=== PATIENT | male | born 1965 | race Caucasian/White ===

== ENCOUNTER → 2020-03-17 12:09 | Outpatient (CLI) | payer OTHER, SELFPAY ==
--- NOTE | ~2020-03-17 | XR_ITS ---
XR knee RT 3V DATE: 03/17/2020 12:25 INDICATION: Knee pain TECHNIQUE: [place], lateral and standing AP views COMPARISON: None FINDINGS: There is moderately large suprapatellar knee joint effusion. There is tricompartment osteoarthritis, most pronounced at the medial compartment. No fracture, dislocation, periosteal reaction or bone destruction is detected. Femoral and popliteal and trifurcation artery calcifications are noted. IMPRESSION: Moderate knee joint effusion Tricompartment osteoarthritis, most pronounced at the medial compartment Reviewed, dictated and finalized at location A.
--- NOTE | ~2020-03-17 | XR_ITS ---
XR knee LT 3V DATE: 03/17/2020 12:25 INDICATION: Knee pain TECHNIQUE: [place], lateral and standing AP views COMPARISON: None FINDINGS: There is moderate suprapatellar knee joint effusion. There is prominent tricompartment osteoarthritis, most pronounced at the medial and patellofemoral co mpartments. There is a prominent degenerative cyst in the central to medial aspect of the tibial plat eau. There is valgus deformity. No fracture or dislocation, periosteal reaction or bone destruction is suman dent. Femoral, popliteal and trifurcation artery calcifications are noted. IMPRESSION: Prominent tricompartment osteoarthritis Moderate knee joint effusion Reviewed, dictated and finalized at location A.
== END ==
PROVIDERS: PCP Family Medicine; Visit Provider Family Medicine
DX: M25.462 Effusion, left knee (principal); M25.461 Effusion, right knee; M17.0 Bilateral primary osteoarthritis of knee
CPT/HCPCS: 73562

== ENCOUNTER 2020-08-12 07:49 | Outpatient (CLI) | payer OTHER, SELFPAY ==
[2020-08-12 09:15] LABS: Basophils Percent Auto 0.5 % (0.2-1.2); Eosinophils Absolute Auto 0.1 K/mm3 (0-0.3); Eosinophils Percent Auto 1.7 % (0-4.4); Hematocrit 48.1 % (42.0-52.0); Immature Granulocyte Absolute 0.02 K/mm3 (0.00-0.031); Immature Granulocyte Percent A 0.3 % (0-0.5); Lymphocytes Absolute Auto 1.72 K/mm3 (0.9-3.2); Mean Corpuscular HGB Conc 33.3 g/dl (32-36); Mean Corpuscular Hemoglobin 30.4 pg (26-34); Mean Corpuscular Volume 91.4 fl (80-100); Mean Platelet Volume 9.5 fl (7.4-10.4); Monocytes Absolute Auto 0.7 K/mm3 (0.1-0.6); Monocytes Percent Auto 9.2 % (2.6-8.5); Neutrophils Absolute Auto 5.2 K/mm3 (1.3-6.7); Neutrophils Percent Auto 66.3 % (45.5-73.1); Platelet Count Result 218 k/mm3 (150-375); Red Blood Count 5.26 M/mm3 (4.6-6.20); Red Cell Distribution Width 13.1 % (11.5-14.5); White Blood Count 7.8 K/mm3 (4.5-10.0)
[2020-08-12 09:26] LABS: Albumin Level 4.4 g/dL (3.5-5.1)
[2020-08-12 09:29] LABS: Anion Gap 6 mmol/L (8-16); Blood Urea Nitrogen 19 mg/dL (9-20); Calcium 9.3 mg/dL (8.4-10.2); Carbon Dioxide 27 mmol/L (22-30); Chloride 105 mmol/L (98-107); Estimated Glomerular Filt Rate > 60; Glucose 96 mg/dL (75-110); Sodium 138 mmol/L (137-145)
[2020-08-12 10:42] LABS: Hemoglobin A1C 5.3 % (<5.7)
[2020-08-12 11:17] LABS: Urine Cotinine NEGATIVE
== END 2020-08-12 07:50 | disposition home or self-care (01) ==
PROVIDERS: Anesthesiology; PCP Family Medicine; Visit Provider Orthopaedic Surgery
DX: Z01.812 Encounter for preprocedural laboratory examination (principal); M17.0 Bilateral primary osteoarthritis of knee; Z51.81 Encounter for therapeutic drug level monitoring
CPT/HCPCS: 36415; 80048; 80307; 82040; 83036; 85025; 86850; 86900; 86901; 87081

== ENCOUNTER → 2020-08-21 00:08 | Outpatient (CLI) | payer OTHER, SELFPAY ==
[2020-08-21 18:59] LABS: SARS-CoV-2 RNA PCR Negative
== END ==
PROVIDERS: PCP Family Medicine; Visit Provider Orthopaedic Surgery
DX: Z01.812 Encounter for preprocedural laboratory examination (principal); Z20.822 Contact with and (suspected) exposure to COVID-19
CPT/HCPCS: C9803; U0003; U0005

== ENCOUNTER 2020-08-24 15:06 | Inpatient (IN) | payer OTHER, SELFPAY ==
[2020-08-12 08:17] VITALS: BMI 27.6
[2020-08-24] VITALS (13 sets, daily range): BP systolic 109–141; BP diastolic 61–90; PULSE 51–73; RESP 12–20; TEMP 35.9–36.9; O2SAT 98–100; BMI 31.0
--- NOTE | ~2020-08-24 | XR_ITS ---
EXAMINATION: XR knee RT 2V EXAM DATE: 08/24/2020 14:08 INDICATION: Right knee replacement. TECHNIQUE: Portable frontal, crosstable lateral projections right knee obtained immediately followin g arthroplasty. Procedure performed by Bala Velazco MD. FINDINGS: Patient is status post total knee arthroplasty. The orthopedic hardware is in expected po sition. There is small amount of subcutaneous gas, gas within the knee joint space. Overlying soft tissue swelling. Correlate with procedure note. IMPRESSION: Status post total right knee arthroplasty. Reviewed, dictated and finalized at location A.
--- NOTE | 2020-08-24 07:03 | P.PNAN_ITS ---
Anes - Initial Pre Proc Eval Procedure: Operation Date: 08/24/20 10:30 Proposed Procedures p Right Total Knee Arthroplasty - Bala Velazco MD Date/Time: 08/24/20 07:03 Surgeon: Bala Velazco MD Pre Op Diagnosis: OA bilat knee Patient Data Age: 55 Gender: M Height: 1.79 m Weight: 88.6 kg Allergies Allergy/AdvReac Type Severity Reaction Status Date / Time No Known Allergies Allergy Unknown Verified 08/24/20 08:27 Home Medications Medication Instructions Recorded Confirmed Type aspirin 81 mg tablet,delayed 81 mg PO QAM 07/15/19 08/24/20 History release metoprolol succinate 25 mg 75 mg PO DAILY #270 tablet 03/06/20 08/24/20 Rx tablet,extended release 24 hr amlodipine 5 mg QAM 08/12/20 08/24/20 History hydrochlorothiazide 12.5 mg QAM 08/12/20 08/24/20 History rosuvastatin 20 mg QAM 08/12/20 08/24/20 History Patient hx anesthesia problems: none Family hx anesthesia problems: none PMFSH Past Medical History Medical History (Updated 08/24/20 @ 07:00 by Alden Diaz DO) BMI 27.0-27.9,adult Degenerative arthritis of knee Degenerative arthritis of knee, bilateral Hyperlipidemia Hypertension Kidney disease one kidney non functional Vascular disease Surgical History Surgical History (Updated 08/24/20 @ 07:00 by Alden Diaz DO) History of heart artery stent 2017 Hx of CABG x3, 2008 S/P left knee arthroscopy S/P triple vessel bypass Family History Family History Father Diabetes mellitus Family history of cardiovascular disease Mother Diabetes mellitus Social History Social History Smoking packs per day: 1 Smoking cigarettes per day: 20.0 Years smoked: 35 Smoking pack-years: 35.00 Smoking status: Former smoker Tobacco type: cigarettes Additional smoking assessment comments: LAST CIGARETTE 06/11/20 Alcohol intake: current Alcohol use details: STATES 6-10 DRINKS/WEEK Substance use: current Substance use type: marijuana Other substance usage details: STATES COUPLE HITS EVERY OTHER DAY OR SO Last use: 08/10/20 Living arrangements: alone 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[employer] Gender identity (if verbalized by the patient): Male Spiritual care concerns: No Anes - Eval Final PreProcedure Day of Procedure 08/24/20 07:03 Patient weight: overweight Heart: regular rate and rhythm Lungs: clear to auscultation and normal air movement Airway: Mallampati scale class II Neurological: alert and oriented Last oral intake: >/= 8 hours ASA classification: III Emergent: no Anesthetic plan: proceed Anesthesia type and monitoring: regional spinal and standard monitoring Informed Consent: The patient's anesthetic plan and its attendant risks and benefits were discussed with the patient/family/POA. Questions were solicited and answers provided to the satisfaction of the patient/family/POA.
[2020-08-24] MEDS: ACETAMINOPHEN 500 MG TABLET 1000 MG PO ×2 (08:45→17:22)
[2020-08-24] MEDS: LACTATED RINGERS 1,000 ML 30 ML IV CONT ×2 (08:50→13:56)
[2020-08-24] MEDS: TRANEXAMIC ACID 1,000MG/ISO100 1,000 MG/100 ML BAG 200 MG IVPB (08:50)
--- NOTE | 2020-08-24 09:37 | WPDANESPNB ---
Anes - Peripheral Nerve Block Date/Time: 08/24/20 09:37 I have discussed with the patient/family/POA the placement of a peripheral nerve block for post-operative pain management, including associated risks, benefits, complications, and side effects. Alternative methods of post-operative analgesia were detailed. Questions were solicited and answers provided to the satisfaction of the patient/family/POA. Time-Out: A pre-procedural Time-Out was completed immediately before starting the procedure and confirmed: Patient Identification, Site, Procedure, Patient Position and the Availability of Requisite Equipment. Clinical Indications: Acute post-operative pain management requested by the operative surgeon. Nerve Block Insertion Note Anes-nerve block: adductor canal right Patient position: supine Skin prep: chlorhexidine Needle: 22 gauge, stimulating, insulated echogenic needle. Needle length: 80 mm Technique: ultrasound Injectate: bupivacaine 0.5% with epi 5 mcg/ml (30cc - no epi) Observations: tolerated well Complications: none Procedure start time:: 1101 Procedure end time:: 1103
--- NOTE | 2020-08-24 11:01 | WPDHPUPDATE1 ---
History and Physical Update Update Date/Time: 08/24/20 11:01 History and Physical has been reviewed, including an updated exam of the patient. There are NO changes in the patient's condition. Risks, benefits, and alternatives have been discussed and questions answered. Patient agrees to proceed with procedure.
[2020-08-24] MEDS: ceFAZolin 2 GM/D5W 50 ML 2 GM/50 ML BAG IVPB ×2 (11:12→18:19)
[2020-08-24] MEDS: SODIUM CHLORIDE 0.9% IV 50 ML, TRANEXAMIC ACID 1,000 MG TOPICAL (11:55)
[2020-08-24] MEDS: BUPIVACAINE/EPINEPHRINE 0.25% 50 ML VIAL 30 ML INFILTRATE (11:56)
--- NOTE | 2020-08-24 14:05 | P.OP_ITS ---
Procedure Note - Detailed Date of procedure: 08/24/20 Pre-op diagnosis: OA bilat knee Post-op diagnosis: same Procedure performed: right total knee replacement Description of procedure: The patient was identified and proper site identified. In the preop holding area the anesthesia team performed a right sub sartorial block after which the patient was taken to the operating room and transferred to the OR table positioning supine taking care to pad the torso and extremities. After general anesthetic induction and intubation a nonsterile tourniquet was placed high on the right thigh. The right lower extremity was prepped and draped in the usual sterile fashion. The extremity was exsanguinated and with the knee flexed tourniquet was inflated to 300 mmHg remaining up for approximately 74 minutes. An anterior midline incision was made and a mid vastus approach was used. Infra and suprapatellar fat pads were excised. Patella was resected leaving 15 mm thickness and prepared for the 34 round three peg component. Using the intramedullary guide the distal femur was cut in the proper orientation for the size 75 femoral component. Using the extramedullary guide the tibia was cut perpendicular to the long axis protecting collateral ligaments and popliteal structures. It was sized to a 79. Flexion and extension gaps were balanced. Trial reduction was undertaken and the weight-bearing line was noted to passed through the center of the joint. Proximal tibia was drilled and punched in the proper orientation for the real component. Trial components were removed. The bone surfaces were washed with pulsatile lavage and dried. The real components were cemented simultaneously. The knee was held in extension and the patella held clamped until the cement had cured. Excess cement was removed from the joint. After trialing it was determined that the 14 mm insert gave full range of motion from 0-120 degrees of flexion and the patella tracked in the femoral groove with no lift-off. After final lavage the joint the real size 79, 14 mm E poly insert was placed and secured with a locking bar. A Betadine and saline wash was placed into the wound and allowed to sit for approximately 3 minutes and then evacuated. Periarticular tissues were infiltrated with 60 cc of the arthroplasty solution. 1 g of tranexamic acid was left in the wound. The extensor mechanism was repaired with #2 Vicryl suture and 0 looped PDS suture. Subcu was reapproximated with 2 of strata fix and tissue adhesive for the skin. A sterile dressing was applied. He tolerated the procedure well, was awakened and extubated, transferred to the bed and was taken to recovery area in stable condition. There were no known intraoperative complications. Perioperative antibiotics were administered. Anesthesia: GLMA and regional Surgeon: Bala Velazco MD Integration Lead: Cindy Jacques Estimated blood loss (mL): 100 Tourniquet time (min): 74 Drains: No Packing: No Pathology: none sent Complications: No immediate complications Condition: stable Disposition: PACU
[2020-08-24] MEDS: fentaNYL CITRATE INJ (*CRX) 100 MCG/2 ML VIAL 25 MCG IV PUSH ×4 (14:12→14:48)
--- NOTE | 2020-08-24 14:47 | SUR.PHASEI ---
right knee xrays done 4.
--- NOTE | 2020-08-24 15:15 | ADMGEN ---
This patient, Bala Hensley, was admitted to Medical Room 242-01. Patient/family oriented to hospital policies and general routines including ID bracelet, bed and alarms, visiting hours, pain management, procedures, bathroom and other care routines, personal items, smoking policy, room service/diet, and visiting hours. Information on how to activate the Rapid Response Team has been discussed. Patient/Family are encouraged to report perceived risks to care and to ask questions if they do not understand what they are told or what they should do.
[2020-08-24] MEDS: CYCLOBENZAPRINE HCL 5 MG TABLET PO (16:05)
[2020-08-24] MEDS: oxyCODONE HCL (*CRX) 5 MG TAB IR PO ×2 (16:05→21:11)
[2020-08-24] MEDS: DOCUSATE SODIUM 100 MG CAPSULE PO (16:06)
[2020-08-24] MEDS: KETOROLAC 15 MG/ML VIAL (*BKC) IV PUSH (17:20)
[2020-08-25] MEDS: oxyCODONE HCL (*CRX) 5 MG TAB IR PO ×3 (00:09→08:33)
[2020-08-25] MEDS: KETOROLAC 15 MG/ML VIAL (*BKC) IV PUSH ×2 (00:09→05:23)
[2020-08-25] MEDS: ACETAMINOPHEN 500 MG TABLET 1000 MG PO ×2 (00:09→05:22)
[2020-08-25 00:51] VITALS: BP 128/69; PULSE 81; RESP 16; TEMP 36.7; O2SAT 97
[2020-08-25] MEDS: ceFAZolin 2 GM/D5W 50 ML 2 GM/50 ML BAG IVPB ×2 (02:36→10:51)
[2020-08-25 04:51] VITALS: BP 119/79; PULSE 72; RESP 16; TEMP 36.4; O2SAT 99
[2020-08-25] MEDS: CALCIUM CARBONATE (TUMS) 500 MG (200 MG ELEMENTAL) PO (05:28)
[2020-08-25 05:40] LABS: Basophils Percent Auto 0.2 % (0.2-1.2); Eosinophils Percent Auto 0.2 % (0-4.4); Hematocrit 39.7 % (42.0-52.0); Hemoglobin 13.2 g/dL (14.0-18.0); Immature Granulocyte Absolute 0.04 K/mm3 (0.00-0.031); Immature Granulocyte Percent A 0.4 % (0-0.5); Lymphocytes Percent Auto 16.9 % (18.3-44.2); Mean Corpuscular HGB Conc 33.2 g/dl (32-36); Mean Corpuscular Hemoglobin 29.5 pg (26-34); Mean Corpuscular Volume 88.8 fl (80-100); Mean Platelet Volume 9.7 fl (7.4-10.4); Monocytes Percent Auto 11.2 % (2.6-8.5); Neutrophils Absolute Auto 6.3 K/mm3 (1.3-6.7); Neutrophils Percent Auto 71.1 % (45.5-73.1); Platelet Count Result 177 k/mm3 (150-375); Red Blood Count 4.47 M/mm3 (4.6-6.20); Red Cell Distribution Width 12.9 % (11.5-14.5); White Blood Count 8.9 K/mm3 (4.5-10.0)
[2020-08-25 05:50] LABS: Anion Gap 4 mmol/L (8-16); Blood Urea Nitrogen 16 mg/dL (9-20); Calcium 8.7 mg/dL (8.4-10.2); Carbon Dioxide 28 mmol/L (22-30); Chloride 102 mmol/L (98-107); Estimated CRCL calculation 87 ml/min; Estimated Glomerular Filt Rate > 60; Glucose 112 mg/dL (75-110); Potassium 3.9 mmol/L (3.4-5.0); Sodium 134 mmol/L (137-145)
--- NOTE | 2020-08-25 07:36 | PM.DS ---
DS: Admitting Diagnosis Admitting Diagnosis Admitting Diagnosis: Osteoarthritis right knee DS: Discharge Diagnosis Discharge Diagnosis (1) Degenerative arthritis of knee, bilateral: Qualifiers: Osteoarthritis type: primary Qualified Code(s): M17.0 - Bilateral primary osteoarthritis of knee Code(s): M17.0 - Bilateral primary osteoarthritis of knee Status: Chronic Assessment and Plan: 55-year-old male postop day 1 right total knee replacement. Surgery discussed in detail. Has done well overnight and is going to be discharged home today. DS: Summary Hospital Course Reason for hospitalization: Overnight observation, pain control, initiate therapy Hospital Course: Following the patient's surgery he was admitted for observation to the floor. Did well overnight. Being discharged today. Status at Discharge Functional status at discharge: uses cane/walker Time Spent with Patient Time attestation: Total time spent providing and/or coordinating discharge services: Time spent: Less than 30 minutes Exam Const: General: cooperative, no acute distress and alert Nutritional Appearance: other Orientation/consciousness: patient oriented x3 Limitations: no limitations HENMT: Head: normal to inspection Ears: hearing grossly normal bilaterally Face and sinus: face symmetric Mouth: Yes moist mucous membranes Teeth and gingiva: fair dentition Eyes: Alignment and Position: alignment normal and position normal Sclera: sclerae normal Neck: Neck: normal visual inspection and nontender Chest: Chest palpation & inspection: normal inspection of the chest Resp: Effort & Inspection: normal respiratory effort and able to speak in complete sentences GI: Inspection: other (Nontender, nondistended) Skin: General skin exam: normal color Rashes: no rashes Neuro: General: patient oriented x3 Cognition (Neuro): normal cognition Speech: normal speech Sensory Exam: normal sensation Extrem: General: normal to inspection and other Other: Exam of the right knee shows a dry dressing, well-opposed skin edges, minimal bruising and minimal swelling. Neurovascular status unremarkable right lower extremity. Calves negative. Psych: Appearance: grossly normal Mental Status: mental status grossly normal DS: Data Data Completed and Pending Labs on day of discharge: Labs from last 24 hours 08/25/20 08/25/20 05:15 05:15 WBC 8.9 RBC 4.47 L Hgb 13.2 L Hct 39.7 L MCV 88.8 MCH 29.5 MCHC 33.2 RDW 12.9 Plt Count 177 MPV 9.7 Immature Gran % (Auto) 0.4 Neut % (Auto) 71.1 Lymph % (Auto) 16.9 L [place] % (Auto) 11.2 H Eos % (Auto) 0.2 Baso % (Auto) 0.2 Lymph # (Auto) 1.50 [place] # (Auto) 1.0 H Eos # (Auto) 0.0 Baso # (Auto) 0.0 Abs Immat Gran (auto) 0.04 H Absolute Neuts (auto) 6.3 Absolute Nucleated RBC 0.0 Nucleated RBC % 0.0 Sodium 134 L Potassium 3.9 Chloride 102 Carbon Dioxide 28 Anion Gap 4 L BUN 16 Creatinine 1.00 Estim Creat Clear Calc 87 Estimated GFR > 60 Glucose 112 H Calcium 8.7 Discharge Plan Discharge Attending physician on discharge: Bala Velazco Discharging Clinician: Bala Velazco Anticipated Discharge Date/Time: 08/25/20 12:00 Patient Disposition: Home, Self-Care Activity: may shower Diet: as tolerated Wound Care Instructions: follow printed instructions Discharge Instructions: 3 times daily for 20 minutes each time, reclining in bed with ice packs over the incision and a pillow underneath the calf of the affected leg, not under the knee. Your wound is glued so it is okay to get into the shower and get the wound wet in two days. Be sure to read through all the information that came from a my office and the hospital. Most of the answers you will need can be found that material. Call the office with any questions that you cannot find answers to, or concerns you may have. After the Teri is
[2020-08-25] MEDS: ROSUVASTATIN 10 MG TABLET 20 MG PO (08:29)
[2020-08-25] MEDS: METOPROLOL SUCCINATE EXT REL 25 MG TABCR 75 MG PO (08:30)
[2020-08-25] MEDS: DOCUSATE SODIUM 100 MG CAPSULE PO (08:31)
[2020-08-25] MEDS: hydroCHLOROthiazide 12.5 MG CAPSULE PO (08:31)
[2020-08-25] MEDS: amLODIPine BESYLATE 5 MG TABLET PO (08:31)
--- NOTE | 2020-08-25 09:08 | P.PNAN_ITS ---
Anes - Prog Note Post-Op Date/Time: 08/25/20 09:08 Cardiovascular status: normal Respiratory status: normal Airway patency: baseline Mental status: baseline Post-Op hydration status: normal Vital Signs: Last Vital Signs Temp 36.4 C 08/25/20 04:51 Pulse 72 08/25/20 04:51 Resp 16 08/25/20 04:51 BP 119/79 08/25/20 04:51 Pulse Ox 99 08/25/20 04:51 Pain Score (VAS): 0/10. Patient resting up to chair at time of assessment, appears comfortable. RN at bedside. I/O: Intake & Output 08/24/20 08/25/20 08/25/20 23:59 07:59 15:59 Intake Total 50 550 Output Total 800 Balance 50 -250 Laboratory Tests 08/25/20 05:15 08/25/20 05:15 08/25/20 08/25/20 05:15 05:15 WBC 8.9 RBC 4.47 L Hgb 13.2 L Hct 39.7 L MCV 88.8 MCH 29.5 MCHC 33.2 RDW 12.9 Plt Count 177 MPV 9.7 Immature Gran % (Auto) 0.4 Neut % (Auto) 71.1 Lymph % (Auto) 16.9 L [place] % (Auto) 11.2 H Eos % (Auto) 0.2 Baso % (Auto) 0.2 Lymph # (Auto) 1.50 [place] # (Auto) 1.0 H Eos # (Auto) 0.0 Baso # (Auto) 0.0 Abs Immat Gran (auto) 0.04 H Absolute Neuts (auto) 6.3 Absolute Nucleated RBC 0.0 Nucleated RBC % 0.0 Sodium 134 L Potassium 3.9 Chloride 102 Carbon Dioxide 28 Anion Gap 4 L BUN 16 Creatinine 1.00 Estim Creat Clear Calc 87 Estimated GFR > 60 Glucose 112 H Calcium 8.7 Post-procedural complaints: none Patient Feedback: Patient satisfied with anesthetic care.
[2020-08-25 10:00] VITALS: BP 110/66; PULSE 69; RESP 18; TEMP 36.6; O2SAT 100
[2020-08-25] MEDS: RIVAROXABAN 10 MG TABLET PO (10:50)
== END 2020-08-25 11:55 | disposition home or self-care (01) | DRG 470 ==
LOC: ANH2MED 15:08
PROVIDERS: Admitting Provider Orthopaedic Surgery; PCP Family Medicine; Visit Provider Orthopaedic Surgery
PROC: 0SRC0J9 Replacement of Right Knee Joint with Synthetic Substitute, Cemented, Open Approach (ICD-10-PCS; CPT 27447; principal; 2020-08-24 10:30)
DX: M17.0 Bilateral primary osteoarthritis of knee (principal); E78.5 Hyperlipidemia, unspecified; I12.9 Hypertensive chronic kidney disease with stage 1 through stage 4 chronic kidney disease, or unspecified chronic kidney disease; N18.9 Chronic kidney disease, unspecified; Z95.5 Presence of coronary angioplasty implant and graft; Z95.1 Presence of aortocoronary bypass graft; Z87.891 Personal history of nicotine dependence
CPT/HCPCS: 36415; 73560; 80048; 85025; 97110; 97116; 97161; 97165; 97530; A9270; C1713; C1776; C9803; J0690; J1885; J2250; J2704; J3010; J7120; U0003; U0005

== ENCOUNTER 2020-10-19 12:30 | Outpatient (RCR) | payer OTHER, SELFPAY ==
--- NOTE | 2020-08-31 13:50 | PTOPEVAL ---
Thank you for referring Bala Hensley to [facility].? The patient is scheduled to be seen for therapy? 2-3 x/week for 5 weeks for 10 visits. Please review, sign, date and return this plan of care MACKENZIE. I agree with and certify that the following plan of care is medically necessary. Referring Physician Date Attending Provider: Bala Velazco MD Physical Therapy Evaluation Diagnosis right knee replacement due to OA Onset 08/24/20 Additional Evaluation Detail s/p TKR 06/26/20, currently using a walker. He is taking his pain medication as prescribed to assist with managing the pain. 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 He c/o pain and swelling of his leg since surgery. He is trying to perform his exercises as he is able to tolerate. He is having trouble with SLR and knee flex. He c/o the right leg feeling heavy with tightness and swelling. He is using the ice machine multiple times a day. 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 He is off work currently. Prior Level of Function Home Setting Home Type House Environmental Barriers Stairs, Greater than 4 Living Situation Alone Support Available Local Family Support Pain Assessment Self Report Pain Assessment Right Knee(s) Reported Pain Level 9 Pain Description Burning,Tightness Pain Frequency Acute Lowest Pain Intensity 0 Greatest Pain Intensity 9 Pain Aggravating Factors ADL's,Bending,Changing Position,Inspiration,Walking, Weight Bearing/Standing Pain Behaviors Anxious Lower Extremity Range of Motion Knee Range of Motion Right Knee Flexion Range of Motion - Active 86 Knee Extension Range of Motion - Active -30 Query Text: Knee Range of Motion Limitations Edema,Muscle Weakness,Pain, Soft Tissue Restriction Lower Extremity Muscle Strength Testing Hip Strength Right Hip Flexion Strength 3- Fair - Hip Extension Strength 3- Fair - Hip Abduction Strength 3- Fair - Knee Strength Right Knee Flexion Strength 3- Fair - Knee Extension Strength 3- Fa
--- NOTE | 2020-10-08 16:09 | PTOPEVAL ---
Thank you for referring Bala Hensley to [facility].? Bala has received 11 therapy visits to address impairments related to his knee surgery. He is progressing towards his therapy goals with improved knee range, leg strength, pain and tolerance daily activities. He is progressing towards his therapy goals. He requires 6 additional visits to finalize his HEP and achieve remaining therapy goals. The patient is scheduled to be seen for therapy? 2 x/week for 3 weeks. Please review, sign, date and return this plan of care MACKENZIE. I agree with and certify that the following plan of care is medically necessary. Referring Physician Date Attending Provider: Bala Velazco MD Physical Therapy Progress Note Diagnosis right knee replacement due to OA Onset 08/24/20 Additional Evaluation Detail s/p TKR 06/26/20, Subjective Information He reports continued Query Text:As Reported By Patient/ limitations with household Family chores, walking, standing and ADL's. He c/o continued pain and swelling of his knee. He reports continued limitations with knee motion. He does not usually use a cane, but he attended therapy with a cane today. He spent most of yesterday on a tractor cutting grass. He does not feel like his is ready to be finished with therapy or released to RTW. Pain Assessment Right Knee(s) Reported Pain Level 3 Pain Description Aching,Soreness,Stabbing Pain Frequency Continuous Lowest Pain Intensity 3 Greatest Pain Intensity 5 Pain Aggravating Factors Bending,Exercise/Activity, Stair Climbing,Supine,Walking, Weight Bearing/Standing Pain Behaviors Anxious,Moaning,Screaming Lower Extremity Range of Motion Knee Range of Motion Right Knee Flexion Range of Motion - Active 132 Knee Extension Range of Motion - Active -5 Query Text: Lower Extremity Muscle Strength Testing Hip Strength Right Hip Flexion Strength 5 Normal Hip Extension Strength 4- Good - Hip Abduction Strength 3 Fair Knee Strength Right Knee Flexion Strength 4+ Good + Knee Extension Strength 5 Normal Palpation Assessment Palpation min tenderness of right distal thigh, medial/lateral knee region. incision healed with no scar restrictions noted
--- NOTE | 2020-10-28 11:40 | PCPTNOTE ---
Admitting Provider: Attending Provider: Bala Velazco MD Patient:Bala Hensley Date of :1965 Patient has not returned for any further treatments since 10/19/2020, therefore he will be discharged at this time. He had follow up visit with his doctor, who released him to return to normal activities and return to work. Patient?s initial visit was on 08/31/2020 12:30 and he had a total of 14 visits. The goals have been partially met at this time. Thank you for referring this patient to [facility]. Please review, sign, date and return this discharge summary MACKENZIE. I have been updated about the patient's current status and I agree with discharge from the above service at this time. Referring Physician Date
== END 2020-11-16 10:10 | disposition home or self-care (01) ==
LOC: ANHPT 12:30
PROVIDERS: PCP Family Medicine; Visit Provider Orthopaedic Surgery
DX: Z47.1 Aftercare following joint replacement surgery (principal); Z96.651 Presence of right artificial knee joint
CPT/HCPCS: 97014; 97110; 97140; 97162; 97530; G0283

== ENCOUNTER 2020-11-03 13:57 | Outpatient (CLI) | payer OTHER, SELFPAY ==
--- NOTE | ~2020-11-03 | CT_ITS ---
EXAMINATION: CT abdomen pelvis wo con DATE: 11/03/2020 14:40 INDICATION: Gross hematuria. TECHNIQUE: Computed tomography (CT) of the abdomen and pelvis was performed without intravenous contr ast. Automated exposure control and iterative reconstruction technique were employed. The dose-length product was 392.02 mGy-cm. COMPARISON: CT abdomen and pelvis 09/01/2011 FINDINGS: The visualized portions of the lung bases demonstrate mild atelectasis. No pleural effusion . The heart size is normal. No pericardial effusion. The liver, gallbladder, spleen, pancreas, and ad renal glands are normal. There is a 2 mm stone in right kidney. There is severe left hydronephrosis w ith transition point at the ureteropelvic pelvic junction. There is severe atrophy of left kidney. Th e prostate is mildly enlarged. There are no dilated loops of bowel. There is a 10 x 11 mm left para-a ortic lymph node. There is severe thoracic and lumbar spondylosis. IMPRESSION: 1. Severe left hydronephrosis with severe left kidney atrophy. 2. 2 mm nonobstructing right kidney stone. 3. Mildly enlarged left para-aortic lymph node, likely reactive. Reviewed, dictated and finalized at location B.
== END 2020-11-03 13:58 | disposition home or self-care (01) ==
LOC: ANHIMG 14:04
PROVIDERS: PCP Family Medicine; Visit Provider Physician Assistant Medical
DX: R31.9 Hematuria, unspecified (principal); N20.0 Calculus of kidney
CPT/HCPCS: 74176

== ENCOUNTER 2020-11-18 07:50 | Outpatient (CLI) | payer OTHER, SELFPAY ==
--- NOTE | ~2020-11-18 | CT_ITS ---
EXAMINATION: CT abdomen pelvis wo/w con DATE: 11/18/2020 08:44 INDICATION: Gross hematuria TECHNIQUE: Computed tomography (CT) of the abdomen and pelvis was performed without with 130 cc Omnip aque 350 intravenous contrast. The dose-length product was 1115.62 mGy-cm. Automated exposure control and iterative reconstruction technique were employed. COMPARISON: CT dated and FINDINGS: Lung bases are unremarkable. Heart size normal. No significant pleural or pericardial effus ion. There is a 2 mm nonobstructing right renal stone. Mildly enlarged left periaortic lymphadenopath y, likely reactive. Prostate gland mildly enlarged. No abnormal pelvic masses or fluid collections. Colonic diverticulosi s without diverticulitis. Nonobstructive bowel gas pattern. Fatty infiltration of the liver. The spleen, pancreas, adrenal glands are unremarkable. There is a 1 cm cystic lesion involving the tail the pancreas. There are small subcentimeter hypovascular lesions of the right kidney, most likely benign. Moderate lower thoracic and lumbar spondylosis. IMPRESSION: 1. Improved moderate-severe left hydronephrosis with left renal atrophy. 2: Nonobstructing right nephrolithiasis 3: Cystic lesion tail of pancreas measuring 1 cm. The differential diagnosis includes pseudocyst, int raductal papillary mucinous neoplasm (IPMN), mucinous cystic neoplasm (MCN), and the less common sero us cystadenoma and neuroendocrine tumor. Reviewed, dictated and finalized at location B. IMPRESSION: 1. Improved moderate-severe left hydronephrosis with left renal atrophy. 2: Nonobstructing right nephrolithiasis 3: Cystic lesion tail of pancreas measuring 1 cm. The differential diagnosis in cludes pseudocyst, intraductal papillary mucinous neoplasm (IPMN), mucinous cys tic neoplasm (MCN), and the less common serous cystadenoma and neuroendocrine t umor.
[2020-11-18 08:17] LABS: Estimated Glomerular Filt Rate > 60
== END 2020-11-18 07:51 | disposition home or self-care (01) ==
PROVIDERS: PCP Family Medicine; Visit Provider Urology
DX: R31.0 Gross hematuria (principal); N20.0 Calculus of kidney; K86.9 Disease of pancreas, unspecified
CPT/HCPCS: 74178; Q9967

== ENCOUNTER 2021-04-07 11:38 | Emergency (ER) | payer OTHER, SELFPAY ==
--- NOTE | ~2021-04-07 | XR_ITS ---
EXAMINATION: XR cervical spine 4-5V EXAM DATE: 04/07/2021 12:03 INDICATION: Injury one week ago diving in pool. Initial encounter. TECHNIQUE: Cervical spine frontal, lateral, lateral swimmers, and open-mouth odontoid projections. There is no prior study for comparison. FINDINGS: There is no evidence of acute cervical fracture. The odontoid process is intact. Pre-den s space is normal. Prevertebral soft tissue is normal. There are no soft tissue abnormalities ident ified. There is moderate loss of the disc height at C5-6 and 6-7. There is up to moderate cervical a rthropathy. The vertebral bodies are aligned. Mild carotid calcification, arterial sclerotic disease, with unknown amount of additional atheroscler otic disease. Consider correlating with carotid ultrasound. Sternotomy wires. Lung apices are unrema rkable. IMPRESSION: 1. No acute cervical findings. 2. Moderate cervical spondylosis. 3. Carotid calcification; consider nonemergent carotid ultrasound. Reviewed, dictated and finalized at location B.
--- NOTE | 2021-04-07 11:44 | ED.NECK ---
HPI - Neck Pain/Injury General Chief Complaint: Neck Pain/Injury Stated Complaint: HEAD/NECK/BACK INJURY Time Seen by Provider: 04/07/21 11:55 Source: patient Mode of arrival: ambulatory Limitations: no limitations History of Present Illness HPI Narrative: Bala is a 56 year old female patient who ambulated into [facility]. Patient states approximately one and 1/2 weeks ago he dove into a pool hitting his head ; approximately 8cm superficial abrasion to left anterior scalp which is scabbed and healing. He states he has right sided neck pain. He states he can move all extremities and denies numbness or tingling. He has continues pain to right neck and shoulder. Full ROM to right neck and shoulder. Patient states his only symptom is pain to area. MD complaint: neck injury Related Data Home Medications Medication Instructions Recorded Confirmed aspirin 325 mg tablet 325 mg PO DAILY 09/08/20 01/06/21 Allergies Allergy/AdvReac Type Severity Reaction Status Date / Time No Known Allergies Allergy Unknown Verified 01/06/21 15:10 Review of Systems Review of Systems: CONSTITUTIONAL: Denies body aches, fever, chills, or sweats. EYES: Denies visual changes, redness, or discharge. ENT: Denies rhinorrhea, congestion, sore throat, or otalgia. CARDIOVASCULAR: Denies chest pain, palpitations, or edema. RESPIRATORY: Denies cough or dyspnea. GASTROINTESTINAL: Denies abdominal pain, nausea, vomiting, or diarrhea. GENITOURINARY: Denies dysuria or hematuria. SKIN: Denies rash, itching. abrasion to left scalp MUSCULOSKELETAL:+ right neck pain NEUROLOGIC: Denies headache, numbness, tingling, or weakness. PSYCH: Denies depression or anxiety. 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 Vascular disease Surgical History Surgical History Degenerative arthritis of knee, bilateral Right TKA August 24, 2020 History of heart artery stent 2017 History of left nephrectomy Hx of CABG x3, 2007 S/P left knee arthroscopy S/P triple vessel bypass Family History Family History Father Diabetes mellitus Family history of cardiovascular disease Mother Diabetes mellitus Social History Social History Smoking packs per day: 1 Smoking cigarettes per day: 20.0 Years smoked: 35 Smoking pack-years: 35.00 Smoking status: Former smoker Additional smoking assessment comments: LAST CIGARETTE 06/11/20 Alcohol intake: current Alcohol use details: STATES 6-10 DRINKS/WEEK Substance use: current Substance use type: marijuana Other substance usage details: STATES COUPLE HITS EVERY OTHER DAY OR SO Last use: 08/10/20 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 Please see nursing chart for further information. There is no relevant family history pertinent to the presenting complaint Exam Narrative: GENERAL: Well-appearing, well-nourished, and in no acute distress. HEAD: Normocephalic, atraumatic; 7cm abrasion to left scalp, scabbed, no erythema or drainage EYES: EOMI. No redness or drainage. Conjunctivae normal. ENT: Mucous membranes pink and moist. Nares clear. No rhinorrhea. NECK: Normal AROM. Supple. No lymphadenopathy. MUSCULOSKELETAL: No bony tenderness; pain with palpation to right trapezius, EXTREMITIES: Normal range of mot
[2021-04-07 11:59] VITALS: BP 145/65; PULSE 99; RESP 16; TEMP 36.8
[2021-04-07 12:06] VITALS: O2SAT 99
== END 2021-04-07 12:18 | disposition home or self-care (01) ==
PROVIDERS: Emergency Provider Nurse Practitioner Family; PCP Family Medicine
DX: S13.9XXA Sprain of joints and ligaments of unspecified parts of neck, initial encounter (principal); W16.022A Fall into swimming pool striking bottom causing other injury, initial encounter; Z87.891 Personal history of nicotine dependence; E78.5 Hyperlipidemia, unspecified; I10 Essential (primary) hypertension; M17.0 Bilateral primary osteoarthritis of knee; Z95.5 Presence of coronary angioplasty implant and graft; Z90.5 Acquired absence of kidney; Z96.651 Presence of right artificial knee joint
CPT/HCPCS: 72050; 99213; G0463

== ENCOUNTER 2021-07-07 19:14 | Emergency (ER) | payer OTHER, SELFPAY ==
[2021-07-07 19:47] VITALS: BP 149/79; PULSE 74; RESP 18; TEMP 36.6; O2SAT 100
--- NOTE | 2021-07-07 20:08 | ED.ABDPAIN ---
HPI - Abdominal Pain General Chief Complaint: Abdominal Pain Stated Complaint: severe stomach pains kidney stone a week ago Time Seen by Provider: 07/07/21 20:08 Source: patient Mode of arrival: ambulatory Limitations: no limitations History of Present Illness HPI narrative: 56-year-old man with a history of left nephrectomy in the past year, hypertension, and coronary artery disease comes to the ER complaining of severe mid abdominal pain that was sharp and worse with a deep breath and with movement. Patient states that he had no fever, nausea, hematuria, radiating pain, diarrhea or dysuria. He states that the pain has since subsided, is very mild and he has no other symptoms with it. He was told that his right kidney had a stone in it. MD elicited complaint: abdominal pain Pertinent past history: myocardial infarction and other (Left nephrectomy, appendectomy) Onset (ago): hour(s) (1) Pain Consistency: constant and now resolved Location: periumbilical Severity: severe Quality: sharp Radiation: none Migration to: no migration Exacerbating factors: movement (In taking a deep breath) Relieving factors: nothing Associated symptoms: denies other symptoms Related Data Home Medications Medication Instructions Recorded Confirmed aspirin 325 mg tablet 325 mg PO DAILY 09/08/20 07/07/21 Allergies Allergy/AdvReac Type Severity Reaction Status Date / Time No Known Allergies Allergy Unknown Verified 01/06/21 15:10 Review of Systems Review of Systems: All systems reviewed & are unremarkable except as noted in HPI and below Constitutional: Constitutional: Denies chills and Denies fever(s) Cardiovascular: Cardiovascular: Denies chest pain and Denies radiating jaw, neck or arm pain Respiratory: Respiratory: Denies cough, Denies dyspnea and Denies wheezing Gastrointestinal: Gastrointestinal: Reports abdominal pain, Denies diarrhea, Denies nausea and Denies vomiting Genitourinary: Genitourinary: Denies hematuria and Denies dysuria Musculoskeletal: Musculoskeletal: Denies back pain, Denies arthralgias and Denies joint swelling Integumentary/Breasts: Skin/Breast: Denies pruritus, Denies erythema and Denies rash Neurologic: Denies vertigo, Denies dizziness and Denies syncope PMFSH Past Medical History Medical History BMI 27.0-27.9,adult Degenerative arthritis of knee Hyperlipidemia Hypertension 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 Vascular disease Surgical History Surgical History Degenerative arthritis of knee, bilateral Right TKA August 24, 2020 History of heart artery stent 2017 History of left nephrectomy Hx of CABG x3, 2008 S/P left knee arthroscopy S/P triple vessel bypass Family History Family History Father Diabetes mellitus Family history of cardiovascular disease Mother Diabetes mellitus Social History Social History Smoking packs per day: 1 Smoking cigarettes per day: 20.0 Years smoked: 35 Smoking pack-years: 35.00 Smoking status: Former smoker Additional smoking assessment comments: LAST CIGARETTE 06/11/20 Alcohol intake: current Alcohol use details: STATES 6-10 DRINKS/WEEK Substance use: current Substance use type: marijuana Other substance usage details: STATES COUPLE HITS EVERY OTHER DAY OR SO Last use: 08/10/20 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
--- NOTE | 2021-07-07 20:24 | PC.NURSE ---
Pt seen by JUAN. Prior to leaving the room for the last time Pt admitted to me Pain resolving and hes feeling alot better. pt admitted the same to JUAN. JUAN Alcazar offered testing Pt . refused states he is gonna follow up with PMD.
[2021-07-07 20:25] VITALS: BP 149/79; PULSE 74; RESP 18; TEMP 36.6; O2SAT 100
== END 2021-07-07 20:28 | disposition home or self-care (01) ==
PROVIDERS: Emergency Provider Emergency Medicine; PCP Family Medicine
DX: R10.33 Periumbilical pain (principal)
CPT/HCPCS: 99281; 99282

== ENCOUNTER → 2022-03-08 10:08 | Outpatient (CLI) | payer OTHER, SELFPAY ==
--- NOTE | ~2022-03-08 | XR_ITS ---
XR chest 2V 03/08/2022 10:43 Indication: History of papillary renal cell carcinoma Procedure: 2 view chest Comparison: 08/11/2008 Findings: Status post median sternotomy for CABG. No focal air space disease, pulmonary edema, pleura l effusion or suspected pneumothorax. The lungs are hyperinflated which is consistent with, but not d iagnostic of chronic obstructive pulmonary disease. Impression: 1: No acute cardiopulmonary disease. Reviewed, dictated and finalized at location B. Impression: 1: No acute cardiopulmonary disease.
--- NOTE | ~2022-03-08 | US_ITS ---
US retroperitoneal comp 03/08/2022 10:35 Procedure: Realtime transabdominal ultrasound of the kidneys and bladder. Indication: Papillary renal cell carcinoma. Status post left nephrectomy. Comparison: No prior studies for comparison. Findings: There is mild right hydronephrosis. No renal masses or stones. Right kidney measures 14.7 c m in length. Left kidney is surgically absent. Bladder is unremarkable without focal bladder wall abn ormality. Impression: 1: Mild right hydronephrosis. Reviewed, dictated and finalized at location B. Impression: 1: Mild right hydronephrosis.
== END ==
PROVIDERS: PCP Family Medicine; Visit Provider Urology
DX: C64.9 Malignant neoplasm of unspecified kidney, except renal pelvis (principal); N13.30 Unspecified hydronephrosis
CPT/HCPCS: 71046; 76770

== ENCOUNTER → 2022-03-25 10:39 | Outpatient (CLI) | payer OTHER, SELFPAY ==
--- NOTE | ~2022-03-25 | CT_ITS ---
EXAMINATION: CT abdomen pelvis wo/w con DATE: 03/25/2022 11:33 INDICATION: Right hydronephrosis. TECHNIQUE: Computed tomography (CT) of the abdomen and pelvis was performed without and with intraven ous contrast using a total of 130 mL Omnipaque-350 intravenous contrast with a double-bolus technique for simultaneous opacification of the renal parenchyma and renal collecting system. Automated exposu re control and iterative reconstruction technique were employed. The dose-length product was 1433.82 mGy-cm. COMPARISON: CT abdomen and pelvis 11/18/2020 FINDINGS: The visualized portions of the lung bases demonstrate mild atelectasis. No pleural effusion. The hear t size is normal. No pericardial effusion. Median sternotomy wires and mediastinal surgical clips are seen, likely from prior coronary artery bypass grafting. The liver, gallbladder, spleen, pancreas, a nd adrenal glands are normal. There are changes of left nephrectomy. There is a 4 mm cyst in right ki dney. There is no urolithiasis. There is focal lack of opacification in the proximal right ureter, bu t the right ureter is normal. The bladder is normal. The prostate is mildly enlarged. There are no di lated loops of bowel. The appendix is not visualized. There are no pathologically enlarged lymph node s. There is no free intraperitoneal fluid. There is severe lumbar and lower thoracic spondylosis. IMPRESSION: 1. No hydronephrosis. Reviewed, dictated and finalized at location A. IMPRESSION: 1. No hydronephrosis.
[2022-03-25 11:11] LABS: Estimated Glomerular Filt Rate > 60
== END ==
PROVIDERS: PCP Family Medicine; Visit Provider Urology
DX: N13.30 Unspecified hydronephrosis (principal)
CPT/HCPCS: 74178; Q9967

== ENCOUNTER 2023-03-22 14:04 | Outpatient (NON) | payer OTHER, SELFPAY ==
[2023-03-22 14:19] LABS: Crystals Synovial Fluid None Seen (None Seen)
[2023-03-22 14:20] LABS: Appearance Synovial Fluid Cloudy (Clear); Color Synovial Fluid Yellow (Colorless); Macrophages Synovial Fluid 6 %; Monocytes Synovial Fluid 25 %; Neutrophils Synovial Fluid 69 % (0-25); Source Synovial Fluid Synovial fluid
[2023-03-22 14:21] LABS: Nucleated Cell Synovial Fluid 12675 /uL (0-200); RBC Synovial Fluid 10000 /uL (0-0)
== END 2023-03-22 14:05 | disposition home or self-care (01) ==
PROVIDERS: PCP Family Medicine; Visit Provider Nurse Practitioner
DX: M25.462 Effusion, left knee (principal)
CPT/HCPCS: 87070; 87075; 87205; 89051; 89060

== ENCOUNTER 2023-08-30 11:00 | Outpatient (CLI) | payer OTHER, SELFPAY ==
--- NOTE | ~2023-08-30 | CT_ITS ---
CT Scan of the Chest without Contrast: Clinical Indication: Lung cancer screening, tobacco use Technique: Contiguous sections were acquired throughout the chest without intravenous contrast. Dose reduction technique was used on this scan by utilizing automated exposure control and iterative recon struction technique. The dose-length product (DLP) was 106.05 mGy-cm. Findings: There is no evidence of any significant mediastinal, hilar or axillary lymphadenopathy. The mediastin al soft tissues appear normal. There is no evidence of pleural or pericardial effusion. 4 mm right middle lobe pulmonary nodule present (axial image 72). Images through the upper abdomen reveal no abnormalities. Impression: Lung RADS 2: Benign appearance. 12 month follow-up screening CT advised. Reviewed, dictated and finalized at location . Impression: Lung RADS 2: Benign appearance. 12 month follow-up screening CT advised.
== END 2023-08-30 11:01 ==
LOC: MICIMG 11:01
PROVIDERS: PCP Family Medicine; Visit Provider Nurse Practitioner Family
DX: Z12.2 Encounter for screening for malignant neoplasm of respiratory organs (principal); F17.210 Nicotine dependence, cigarettes, uncomplicated
CPT/HCPCS: 71271

== ENCOUNTER 2023-12-24 10:26 | Emergency (ER) | payer OTHER, SELFPAY ==
--- NOTE | ~2023-12-24 | XR_ITS ---
EXAMINATION: XR knee LT 3V DATE: 12/24/2023 10:59 INDICATION: Anterior left knee pain and swelling TECHNIQUE: Anteroposterior, sunrise, oblique and crosstable lateral views of the affected knee were o btained COMPARISON: 08/04/2020 FINDINGS: No fracture. There is distention of the suprapatellar pouch with increased density is also seen poste rior to the infrapatellar fat pad which could represent a joint effusion or effusion. There is likely secondary elevation of the patella with widening of the patellofemoral joint space. Osteoarthritis a t the left knee with severe joint space narrowing at the lateral compartment of the left knee and mod erate size marginal osteophytes in all 3 compartments. Chronic large subarticular lucency with thin s clerotic margins at the posterolateral aspect of the medial tibial plateau. IMPRESSION: 1. 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 2. Large left knee joint effusion and/or synovitis. Reviewed, dictated and finalized at location A. IMPRESSION: 1. Tricompartmental osteoarthritis, severe in the lateral compartment of the le ft knee with no acute osseous abnormality. 2. Large left knee joint effusion and/or synovitis.
[2023-12-24 10:26] VITALS: BP 144/92; PULSE 96; RESP 16; TEMP 36.6; O2SAT 98
--- NOTE | 2023-12-24 10:53 | ED.GENADULT ---
HPI - General Adult General Chief complaint: Extremity Injury, Lower Stated complaint: left knee injury Time Seen by Provider: 12/24/23 10:37 History of Present Illness HPI narrative: Antelmo is a 58M with a PMH of OA, HTN, and CAD that presented to the ED with pain in his left knee. 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 No other injuries or concerns noted. 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 Vascular disease Surgical History Surgical History Degenerative arthritis of knee, bilateral Right TKA August 24, 2020 History of heart artery stent 2017 History of left nephrectomy 2020 History of right knee joint replacement August 24, 2020 Hx of CABG x3, 2008 S/P left knee arthroscopy S/P triple vessel bypass Family History Family History Father Diabetes mellitus Family history of cardiovascular disease Mother Diabetes mellitus Social History Social History Smoking packs per day: 1 Smoking cigarettes per day: 20.0 Years smoked: 35 Smoking pack-years: 35.00 Smoking status: Former smoker Additional smoking assessment comments: LAST CIGARETTE 06/11/20 Alcohol intake: former Substance use: former Substance use type: marijuana Other substance usage details: STATES COUPLE HITS EVERY OTHER DAY OR SO Last use: 08/10/20 Lack of Transportation: No Lack of Food: Never True Current Housing: Decline to Answer Concerned About Future Housing: No Difficulty Paying Gas/Electric Bills: No Difficulty Paying for Meds: No Currently Unemployed: No Education: High School Diploma/GED Difficulty w/ Childcare or Family Care: No Living arrangements: alone Occupation/Education: occupation 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 Gender identity (if verbalized by the patient): Male Spiritual care concerns: No Exam Const: General: cooperative, healthy appearing, comfortable, no acute distress, well developed, alert, awake and Physically active Orientation/consciousness: oriented to person, oriented to place and oriented to time HENMT: Head: normal to inspection, normocephalic and atraumatic Ears: hearing grossly normal bilaterally and external ears normal Face/Nose/Sinus: Normal external nose present Eyes: General: appearance normal, both eyes and all related structures Periorbital: periorbital findings normal Sclera: sclerae normal Pupils: Equal, round and reactive pupils present Neck: Neck: normal visual inspection Chest: Chest palpation & inspection: normal inspection of the chest Resp: Effort & Inspection: normal respiratory effort, able to speak in complete sentences and no respiratory distress Cardio: Jugular venous distension: no JVD Rate: regular rate GI: Inspection: normal to inspection GI Palp: Yes Soft to palpation Auscultation: normal bowel sounds Skin: General skin exam: normal color and no rashes or lesions noted Neuro: General: oriented to person, oriented to place and oriented to time Cranial nerves: Yes Equal, round and reactive pupils present Extrem: General: normal to inspection
[2023-12-24] MEDS: MORPHINE SULFATE (*CRX) 4 MG/ML INJ IM (11:25)
[2023-12-24 12:02] VITALS: BP 155/85; PULSE 88; RESP 18; O2SAT 98
[2023-12-24] MEDS: LIDO 1%/EPINEPHRINE 1:100,000 20 ML VIAL INFILTRATE (12:03)
== END 2023-12-24 12:10 | disposition home or self-care (01) ==
PROVIDERS: Emergency Provider Family Medicine; PCP Family Medicine
DX: M25.462 Effusion, left knee (principal); I25.10 Atherosclerotic heart disease of native coronary artery without angina pectoris; I10 Essential (primary) hypertension; Z79.82 Long term (current) use of aspirin; Z87.891 Personal history of nicotine dependence
CPT/HCPCS: 20610; 73562; 96372; 99283; J2270

== ENCOUNTER 2025-05-26 00:59 | Day surgery (SDC) | payer OTHER, SELFPAY ==
[2025-05-06 16:05] VITALS: BMI 25.8
--- OUTSIDE RECORDS SUMMARY | 2025-05-26 01:02 | XMS_ITS | Encounter Summary ---
Author Organization [facility] Address [facility] [place] [address] Care Team Providers Care License Registration Examiner Name Role Phone Stacie Saleem MD Primary Care Provider [phone] Encounter Details Date Type Department Care Team (Late st Contact Info) Description 01/22/2021 Prep for Procedure [facility] Pre-Admission Testing [address] [place], [place] [id number] Bony Mcdermott MD [address] [facility] [address] [place], [place] [id number] Social History Tobacco Use Types Packs/Day Years Used Date Smoking Tobacco: Former Cigarettes Smokeless Tobacco: Never Alcohol Use Standard Drinks/Week Comments Yes 0 (1 standard drink = 0.6 oz pur e alcohol) 10 Sex and Gender Information Value Date Recorded Sex Assigned at Not on file Legal Sex Male 7:52 PM CDT Gender Identity Not on file Sexual Orientation Not on file COVID-19 Exposure Response Date Recorded In the last month, have you been in contact with someone who was confirmed or suspected to have Coronavirus / COVID-19? No / Unsure 01/22/2021 10:26 AM CDT documented as of this encounter Functional Status * Calculated C-SSRS Risk Score (Lifetime/Recent) Answer Date of Assessment Author Status No Risk Indicated 01/22/2021 11:00 AM CDT César Suazo RN Active * Rutledge Suicide Severity Rating Scale (Screener/Recent Self-Report) Question Answer Date of Assessment Author Status 1. Wish to be (Past 1 Month) No 01/22/2021 11:00 AM CDT Luís Suazo, MEGHNA [place] tive 2. Non-Specific Active Suicidal Thoughts (Past 1 Month) No 01/22/2021 11:00 AM CDT Luís Suazo, MEGHNA Ac tive 6. Suicidal Behavior (Lifetime) No 01/22/2021 11:00 AM CDT Luís Suazo, RN Cuco avalos documented as of this encounter Mental Status * Question Answer Entry Date Author Status Because of a physical, mental, or emotional condition, do you have serious difficulty concentrating, remembering, or making decisions? No 01/23/2021 12:21 AM CDT Clara Fabian RN Active documented in this encounter Plan of Treatment Not on file documented as of this encounter Results * PRE-SURGICAL/PRE-PROCEDURE CORONAVIRUS (COVID 19) (01/19/2021 9:28 AM CDT) CORONAVIRUS SARS COV 2 PCR (RESP) NOT DETECTED NOT DETECTED 01/21/2021 12:10 AM CDT [facility] Comment: A Not Detected result means that SARS-CoV-2 RNA was not present in the specimen above the limit of detection. Test Method: Nucleic Acid Amplification Test including reverse automotive professional polymerase chain reaction (RT-PCR) and automotive professional mediated amplification (TMA). The test method meets the [place] Centers for Disease Control and prevention (CDC) pre departure and arrival requirement for viral test for COVID-19 dated July 09, 2020. Testing requirements for traveling may change with time. The patient is responsible for determining the test requirements for each nation while they are traveling. This patient specimen was tested using an FDA EUA pooling method. Patient specimens with low viral loads may not be detected in sample pools due to the decreased sensitivity of pooled testing. Please review the Fact Sheets and FDA authorized labeling available for health care providers and patients using the following websites: https://www.Splice.Lumiary/home/Covid-19/HCP/NAAT/fact-sheet2 https://www.Splice.Lumiary/home/Covid-19/Patients/NAAT/ fact-sheet2 This test has been authorized by the FDA under an Emergency Use Authorization (EUA) for use by authorized laboratories. Due to the current public health emergency, [facility] is accepting samples from appropriate clinical sources collected using wide variety of swabs and transport media for COVID-19. Not detected test results derived from specimens received in non- commercially manufactured viral collection kits or those not yet authorized by FDA for COVID-19 testing should be cautiously evaluated and take extra precautions such as such as additional clinical monitoring, including collection of an additional specimen. Additional information about COVID-19 can be found at the [facility] website: www.payByMobile.Lumiary/Covid19. Test performed at [facility] [address] [address] [place] [address] Director: RACHELLE KINNEY DO,MPH FIRST TEST NO 01/19/2021 12:[address] [facility] EMPLOYED IN HEALTHCARE NO 01/19/2021 12:[address] [facility] SYMPTOMATIC DEFINED BY CDC NO 01/19/2021 12:[address] [facility] DATE OF SYMPTOM ONSET UNKNOWN 01/19/2021 12:[address] [facility] HOSPITALIZATION STATUS NO 01/19/2021 12:[address] [facility] PATIENT IN ICU NO 01/19/2021 12:[address] [facility] RESIDENT OF [facility] NO 01/19/2021 12:[address] [facility] UNKNOWN 01/19/2021 12:[address] [facility] PATIENT'S RACE WHITE OR 01/19/2021 12:[address] [facility] ETHNICITY NONHISPANIC 01/19/2021 12:[address] [facility] SOURCE (QST) NASOPHARYNGEAL SWAB 01/19/2021 12:[address] [facility] NASOPHARYNGEAL SWAB / Unknown 01/19/2021 9:28 AM CDT us Bony Mcdermott MD MICROBIOLOGY - GENER AL ORDERABLES Final Result [facility] [address] [place] [address], [place] [phone] [facility] [address] [place] [address], * PTT, PARTIAL THROMBOPLASTIN TIME (01/19/2021 9:05 AM CDT) PTT 28.4 25.1 - 36.5 SEC 01/19/2021 10:[address] [facility] 01/19/2021 9:05 AM CDT Bony Mcdermott MD LABORATORY Christen l Result Performing Organization Address City/[facility]/ZIP Co de Phone Number [facility] [address] [place] [address], [place] [phone] * PROTIME/INR, VENOUS (01/19/2021 9:05 AM CDT) PROTIME 11.7 10.2 - 12.9 SEC 01/19/2021 10:[address] [facility] INR 1.0 01/19/2021 10:[address] [facility] Comment: Recommended INR Therapeutic Goals: 2.0-3.0 Routine Therapy 2.5-3.5 Mechanical Prosthetic Valves (High Risk) 01/19/2021 9:05 AM CDT Bony Mcdermott MD LABORATORY Christen l Result [facility] [address] [place] [address], [place] [phone] * TYPE & SCREEN (01/19/2021 9:05 AM CDT) UNITS ORDERED 2 01/22/2021 1:[address] [facility] ABO/RH A NEGATIVE 01/19/2021 11:[address] [facility] ANTIBODY SCREEN NEGATIVE 11:[address] [facility] SAMPLE EXPIRATION 01/25/2021,23 59 01/22/2021 12:[address] [facility] COMMENT NO HISTORY OF TRANSFUSIONS, OR ANTIBODIES, NEW SPECIMEN NOT NEEDED 01/22/2021 12:[address] [facility] BLOOD UNIT NUMBER [id number] 01/22/2021 1:[address] [facility] PRODUCT: PC LEUKOPOOR 01/22/2021 1:[address] [facility] UNIT DIVISION 00 01/22/2021 1:[address] [facility] BLOOD UNIT STATUS UNIT RELEASED 01/25/2021 7:[address] [facility] TRANSFUSION STATUS OK TO TRANSFUSE 01/22/2021 1:[address] [facility] CROSSMATCH COMPATIBLE-EX M 01/22/2021 1:[address] [facility] BLOOD UNIT NUMBER [id number] 01/22/2021 1:[address] [facility] PRODUCT: PC LEUKOPOOR 01/22/2021 1:[address] [facility] UNIT DIVISION 00 01/22/2021 1:[address] [facility] BLOOD UNIT STATUS UNIT RELEASED 01/25/2021 7:[address] [facility] TRANSFUSION STATUS OK TO TRANSFUSE 01/22/2021 1:[address] [facility] CROSSMATCH COMPATIBLE-EX M 01/22/2021 1:[address] [facility] 01/19/2021 9:05 AM CDT Bony Mcdermott MD BLOOD BANK TEST VIKASH BENAVIDES Final Result [facility] [address] [place] [address], [place] [phone] * (ABNORMAL) COMPREHENSIVE METABOLIC PANEL (01/19/2021 9:05 AM CDT) GLUCOSE 91 70 - 99 MG/DL 01/19/2021 10:[address] [facility] BUN 17 7 - 18 MG/DL 01/19/2021 10:[address] [facility] CREATININE S/P/B 1.09 0.7 - 1.3 MG/DL 01/19/2021 10:[address] [facility] SODIUM S/P/B 137 136 - 145 MMOL/L 01/19/2021 10:[address] [facility] POTASSIUM S/P/B 4.1 3.5 - 5.1 MMOL/L 01/19/2021 10:[address] [facility] CHLORIDE S/P/B 105 100 - 108 MMOL/L 01/19/2021 10:[address] [facility] CO2 27.5 21 - 32 MMOL/L 01/19/2021 10:[address] [facility] CALCIUM S/P/B 9.2 8.5 - 10.1 MG/DL 01/19/2021 10:[address] [facility] BILIRUBIN TOTAL S/P/B 0.6 0.2 - 1.2 MG/DL 01/19/2021 10:03 AM [facility] Comment: THIS ASSAY IS NOT RECOMMENDED FOR PATIENTS UNDERGOING TREATMENT WITH ELTROMBOPAG DUE TO THE POTENTIAL FOR FALSELY ELEVATED RESULTS. TOTAL PROTEIN S/P/B 7.8 6.4 - 8.2 G/DL 01/19/2021 10:03 AM [facility] ALBUMIN S/P/B 3.7 3.4 - 5.0 G/DL 01/19/2021 10:03 AM [facility] AST 18 15 - 37 U/L 01/19/2021 10:03 AM [facility] ALT 26 16 - 60 U/L 01/19/2021 10:03 AM [facility] ALKALINE PHOSPHATASE S/P/B 101 50 - 136 U/L 01/19/2021 10:03 AM [facility] ANION GAP 4.5(L) 5 - 15 MMOL/L 01/19/2021 10:03 AM [facility] BUN CREATININE RATIO 15.6 6 - 26 01/19/2021 10:03 AM [facility] A/G RATIO 0.9(L) 1.0 - 2.0 RATIO 01/19/2021 10:03 AM [facility] EGFR NON-AFR. AMER. 75(L) >90 ML/MIN/1.7 3 M2 01/19/2021 10:03 AM [facility] EGFR AFR. AMER. 87(L) >90 ML/MIN/1.7 3 M2 01/19/2021 10:03 AM [facility] Comment: NOTE: eGFR is not calculated for patients <18 years of age. This is an estimated GFR (CKD EPI) and should not be used for calculating drug doses. 01/19/2021 9:05 AM CDT Bony Mcdermott MD LABORATORY Christen corcoran Result [facility] [address] [place] [address], [place] [phone] * (ABNORMAL) CBC W/DIFF AUTOMATED (01/19/2021 9:05 AM CDT) Pathologist [facility] WBC 7.1 4.5 - 11.0 x10'3/uL 01/19/2021 9:[address] [facility] RBC 5.31 4.70 - 6.10 x10'6/uL 01/19/2021 9:[address] [facility] HGB 15.1 14.0 - 18.0 G/DL 01/19/2021 9:[address] [facility] HCT 47.0 43.0 - 54.0 % 01/19/2021 9:[address] [facility] MCV 88.5 80.0 - 94.0 FL 01/19/2021 9:[address] [facility] MCH 28.4 27.0 - 31.0 PG 01/19/2021 9:[address] [facility] MCHC 32.1 32.0 - 36.0 G/DL 01/19/2021 9:[address] [facility] RDW 15.9(H) 11.5 - 14.5 % 01/19/2021 9:[address] [facility] PLT 225 130 - 400 x10'3/uL 01/19/2021 9:[address] [facility] MPV 9.8 9.3 - 12.2 FL 01/19/2021 9:[address] [facility] DIFFERENTIAL TYPE AUTOMATED DIFFERENTIAL 01/19/2021 9:[address] [facility] NEUTROPHILS % 57.6 % 01/19/2021 9:[address] [facility] LYMPHOCYTES % 29.9 % 01/19/2021 9:[address] [facility] MONOCYTES % 9.9 % 01/19/2021 9:[address] [facility] EOSINOPHILS 1.7 % 01/19/2021 9:[address] [facility] BASOPHILS 0.6 % 01/19/2021 9:[address] [facility] IMMATURE GRANS % 0.3 % 01/20/20 9:[address] [facility] ABS. NEUTROPHILS TOTAL 4.10 1.80 - 7.70 x10'3/uL 01/19/2021 9:[address] [facility] ABS. LYMPHOCYTES 2.12 1.00 - 4.80 x10'3/uL 01/19/2021 9:[address] [facility] ABS. MONOCYTES 0.70 0.30 - 0.82 x10'3/uL 01/19/2021 9:[address] [facility] ABS. EOSINOPHILS 0.12 0.04 - 0.54 x10'3/uL 01/19/2021 9:[address] [facility] ABS. BASOPHILS 0.04 0.01 - 0.08 x10'3/uL 01/19/2021 9:[address] [facility] ABS. IMMATURE GRANULOCYTES 0.02 0.00 - 0.49 x10'3/uL 01/19/2021 9:[address] [facility] 01/19/2021 9:05 AM CDT us Bony Mcdermott MD LABORATORY Christen l Result [facility] [address] [place] [address], * (ABNORMAL) URINALYSIS WI REFLEX TO CULTURE (01/19/2021 9:02 AM CDT) SPECIMEN TYPE URINE CLEAN CATCH 01/19/2021 9:[address] [facility] COLOR (U) LIGHT YELLOW 01/19/2021 10:[address] [facility] TRANSPARENCY CLEAR 01/19/2021 10:[address] [facility] SPECIFIC GRAVITY (U) 1.017 1.001 - 1.030 01/19/2021 10:[address] [facility] U PH 5.5 5.0 - 9.0 01/19/2021 10:[address] [facility] LEUKOCYTES (U) NEGATIVE NEGATIVE 01/19/2021 10:[address] [facility] NITRITES NEGATIVE NEGATIVE 01/19/2021 10:[address] [facility] PROTEIN (U) NEGATIVE <30 MG/DL 01/19/2021 10:[address] [facility] URINE GLUCOSE NORMAL NORMAL MG/DL 01/19/2021 10:[address] [facility] KETONES MG/DL (U) NEGATIVE NEGATIVE MG/DL 01/19/2021 10:[address] [facility] UROBILINOGEN NORMAL NORMAL MG/DL 01/19/2021 10:[address] [facility] BILIRUBIN (U) NEGATIVE NEGATIVE MG/DL 01/19/2021 10:[address] [facility] BLOOD (U) 2+(A) NEGATIVE 01/19/2021 10:[address] [facility] CULTURE & SENSITIVITY INDICATED? CULTURE IS NOT INDICATED 01/19/2021 10:[address] [facility] MUCUS RARE /LPF 01/19/2021 10:[address] [facility] WBC/HPF <1 <6 /HPF 01/19/2021 10:[address] [facility] RBC/HPF 1 <6 /HPF 01/19/2021 10:[address] [facility] SQUAMOUS EPITHELIALS RARE /HPF 01/19/2021 10:[address] [facility] URINE SPECIMEN OBTAINED BY CLEAN CATCH PROCEDURE / Unknown 01/19/2021 9:02 AM CDT Bony Mcdermott MD URINE ORDERABLES Fin al Result [facility] [address] [place] [address], documented in this encounter Visit Diagnoses Diagnosis Ureteropelvic junction (UPJ) obstruction- Primary documented in this encounter Additional Health Concerns Infection Onset Date Last Indicated Resolved Time COVID-19 Rule Out 01/22/2021 01/22/2021 01/22/2021 11:16 PM CDT documented as of this encounter Care Teams License Registration Examiner Relationship Specialty Start Date End Date Stacie Saleem MD PCP - General 05/04/11 documented as of this encounter
--- OUTSIDE RECORDS SUMMARY | 2025-05-26 01:02 | XMS_ITS | Clinical Summary ---
Author Organization [facility] Address [address] [place] [address] Care Team Providers Care Water Sponger Name Role Phone Blake Saleem MD Primary Care Provider [phone] [phone] Allergies No known active allergies Medications amLODIPine (NORVASC) 5 mg tablet Take 5 mg by mouth daily 03/11/2020 Active rosuvastatin (CRESTOR) 20 mg tablet daily Active hydroCHLOROthia zide (MICROZIDE) 12.5 mg capsule daily Acti ve metoprolol XL (TOPROL-XL) 25 mg extended release tablet TAKE 3 TABLETS BY MOUTH ONCE DAILY 02/02/2020 Active aspirin 81 mg chewable tablet Take 1 tablet (81 mg total) by mouth daily 11/20/2020 Active Active Problems Problem Noted Date Diagnosed Date Hx of CABG 02/24/2025 Preop cardiovascular exam 02/24/2025 Pancreatic mass 12/01/2020 Hyperlipidemia 11/20/2008 Coronary arteriosclerosis in [place] artery 11/20 Hypertension 11/20/2008 Resolved Problems Problem Noted Date Diagnosed Date Resolved Date Unstable angina pectoris 11/03/2015 Encounters Date Type Department Care Team Description 05/07/2025 Telephone [facility] Cardiology [address] [place] [address] Neda Amin MD 04/14/2025 Orders Only [facility] Cardiology [address] [place] [address] ProviderYuridia MD 04/14/2025 Telephone [facility] Cardiology [address] [place] [address] Cindy Martinez MA 03/06/2025 Results Follow-Up [facility] Cardiology [address] [facility] [address] [place] [address] Neda Amin MD [place] MPI SPECT (Rest and/or Stress) Multiple Studies 03/03/2025 10:15 AM CDT Ancillary Procedure [facility] Cardiology [address] [place] [address] [address] [place] [phone] Hx of CABG; Preop cardiovascular exam 02/24/2025 9:45 AM CDT Office Visit [facility] Cardiology [address] [place] [address] [address] [place] [phone] Neda Amin MD Hx of CABG (Primary Dx); Primary hypertension; Mixed hyperlipidemia; Coronary arteriosclerosis in [place] artery; Preop cardiovascular exam from Last 3 Months Surgical History Surgery Date Site/Laterality Comments REPLACEMENT TOTAL KNEE 06/12/2020 - 06/11/2021 Right NEPHRECTOMY 06/12/2020 - 06/11/2021 Left CORONARY ARTERY BYPASS GRAFT 06/12/2007 - 06/11/2008 x3 CARDIAC STENT PLACEMENT 06/12/2016 - 06/11/2017 Medical History Medical History Date Comments Hyperlipidemia Hypertension Chronic kidney disease Vascular disease Arthritis Family History Medical History Relation Name Comments Heart attack Father Family history of heart attack - (Added by TW Conv) Pancreatic cancer Father Family his tory of pancreatic cancer - (Added by TW Conv) Diabetes Mother Family history of diabetes mellitus (DM) - (Added by TW Conv) Hypertension Mother Family history of hypertension - (Added by TW Conv) Relation Name Status Comments Father Mother Social History Tobacco Use Types Packs/Day Years Used Date Smoking Tobacco: Some Days Cigarettes Smokeless Tobacco: Never Tobacco Cessation:Ready to Q uit: Not Asked; Counseling Given: Not Answered Sex and Gender Information Value Date Recorded Sex Assigned at Not on file 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 Gender Identity Not on file Sexual Orientation Not on file Last Filed Vital Signs Vital Sign Reading Time Taken Comments Blood Pressure 134/78 02/24/2025 9:49 AM CDT Pulse 67 02/24/2025 9:49 AM CDT Temperature 36.1 C (97 F) 12/01/2020 9:08 AM CDT Respiratory Rate - - Oxygen Saturation 99% 02/24/2025 9:49 AM CDT Inhaled Oxygen Concentration - - Weight 83.1 kg (183 lb 3.2 oz) 02/24/2025 9:49 A M CDT Height 181.6 cm (5' 11.5) 02/24/2025 9:49 AM CD T Body Mass Index 25.2 02/24/2025 9:49 AM CDT Plan of Treatment Health Maintenance Due Date Last Done Comments Colon Cancer Screening-Colonoscopy 1965 Depression Screening 1964 Hepatitis C Screening 1964 Prostate Cancer Screening-PSA 1964 Hepatitis B Screening 1982 Regular Well Visit/Exam 18-64 1982 Pneumococcal vaccine <65 (1 of 2 - PCV) 1983 Zoster Vaccine (1 of 2) 2014 DTaP/Tdap/Td Vaccine (2 - Td or Tdap) 01/05/2021 Influenza Vaccine (#1) 2025 8, 01/20/2017, 06/17/2016 Procedures Procedure Name Priority Date/Time Associated Diagnosis Comments LIPID PANEL Routine 03/18/2025 10:51 AM CDT NM MPI SPECT (REST AND/OR STRESS) MULTIPLE STUDIES Schedule Routine, Read Routine (OP Routine) 03/03/2025 12:21 PM CDT Hx of CABG Preop cardiovascular exam ELECTROCARDIOGRAM REPORT Routine 02/24/2025 3:29 PM CDT Preop cardiovascular exam from Last 3 Months Results * Lipid panel (03/18/2025 10:51 AM CDT) SCRIBED Cholesterol, Total 164 30 - 199 mg/dL EXTERNAL LAB SCRIBED Triglycerides 98 <=149 mg/dL EXTERNAL LAB SCRIBED HDL 54 >=40 mg/dL EXTERNAL LAB SCRIBED LDL 91 <=129 mg/dL EXTERNAL LAB Scribed Non-HDL Cholesterol 110 NONE mg/dL EXTERNAL LAB SCRIBED Total Cholesterol/HDL Ratio 3 NONE EXTERNAL LAB Blood us Historical Provider LAB BLOOD ORDERABLES Edit ed Result - Final EXTERNAL LAB * NM MPI SPECT (Rest and/or Stress) Multiple Studies (03/03/2025 12:21 PM CDT) Anatomical Region Laterality Modality Body N/A Nuclear Medicine 03/03/2025 8:38 AM CDT Narrative 03/04/2025 7:38 AM CDT [facility] Cardiology [address] [facility] [address] [address] [facility] [address], [place] [address], [place] [address] P:[phone] P:[phone] MPI Imaging Report Patient Name: BALA RIZZO : 1965 Study Date: 03/03/2025 8:38:22 AM Gender: M Tech: NOBLE ARNOLDMT Location: [facility] Provider: NEDA AMIN Height(Cm): 181.6 BSA: Weight(Kg): 83.1 BMI: 25.2 Order Provider: NEDA AMIN PHYSICIAN: Primary Care Physician: Dr. Saleem. [facility] Physician: Neda Amin M.D., Joleen.CFaithCFaith Stress Supervision: Blake Samuel M.D.,PariCFaithCFaith Stress Interpreting Physician: Blake Samuel M.D.,GaryAFaithCFaithC. Image Interpreting Physician: Blake Samuel M.D.,PariCFaithC. PROCEDURES: Pharmacologic SPECT Report: Myocardial perfusion imaging with Tc99M Sestamibi SPECT at rest and stress post regadenoson (Lexiscan) infusion. INDICATIONS: Hypertension, Pre-Op Clearance, High Cholesterol, Smoker, Z95.1 Presence of aortocoronary bypass graft, and Z01.810 Encounter for preprocedural cardiovascular examination. FINDINGS: Procedural Findings: Other. Tc99m Sestamibi injected IV at rest was 10.8 millicuries 32.9 millicuries of Tc99M Sestamibi injected IV during Lexiscan stress Lexiscan 0.4mg given IV over 10 seconds with low level exercise: 1.2 MPH Pharmacologic stress related symptoms and/or side effects during infusion include nausea and dizziness. Symptoms were resolved with rest and completion of Lexiscan protocol. Baseline heart rate was 66 BPM Maximum Heart Rate Achieved was: 115 BPM Baseline blood pressure was 128/80 mmHg Post Stress Blood Pressure was 128/78 mmHg Termination: Protocol complete. Resting ECG: Sinus rhythm, normal ECG. Post ECG: No diagnostic ST changes. Perfusion Findings: Normal perfusion imaging. No definite fixed or reversible defects. A TID of 0.97 was automatically calculated. LV Function: Global left ventricular function is normal. Left ventricular ejection fraction is 67 %. CONCLUSIONS: Sinus rhythm, normal ECG. No diagnostic ST changes. Global left ventricular function is normal. Left ventricular ejection fraction is 67 %. Normal perfusion imaging. No definite fixed or reversible defects. A TID of 0.97 was automatically calculated. Electronically Signed By: Blake Samuel MD, [facility] 03/04/2025 7:33:53 AM CDT Electronically Signed By: Blake Samuel MD, [facility] 03/04/2025 7:33:53 AM CDT Procedure Note Blake Samuel MD - 03/04/2025 [facility] Cardiology [address], [place] [address] [facility] [address], [place] [address] [address] [place] [address] P:[phone] P:[phone] MPI Imaging Report Patient Name: BALA RIZZO : 1965 Study Date: 03/03/2025 8:38:22 AM Gender: M Tech: [facility] Location: [facility] Provider: NEDA AMIN Height(Cm): 181.6 BSA: Weight(Kg): 83.1 BMI: 25.2 Order Provider: NEDA AMIN PHYSICIAN: Primary Care Physician: Dr. Saleem. [facility] Physician: Neda Amin M.D., PariCFaithCFaith Stress Supervision: Blake Samuel M.D.,PariCFaithCFaith Stress Interpreting Physician: Blake Samuel M.D.,F.A.CFaithCFaith Image Interpreting Physician: Blake Samuel M.D.,F.A.CFaithC. PROCEDURES: Pharmacologic SPECT Report: Myocardial perfusion imaging with Tc99M Sestamibi SPECT at rest and stresspost regadenoson (Lexiscan) infusion. INDICATIONS: Hypertension, Pre-Op Clearance, High Cholesterol, Smoker, Z95.1 Presenceof aortocoronary bypass graft, and Z01.810 Encounter for preprocedural cardiovascularexamination. FINDINGS: Procedural Findings: Other. Tc99m Sestamibi injected IV at rest was 10.8 millicuries 32.9 millicuries of Tc99M Sestamibi injected IV during Lexiscan stress Lexiscan 0.4mg given IV over 10 seconds with low level exercise: 1.2MPH Pharmacologic stress related symptoms and/or side effects duringinfusion include nausea and dizziness. Symptoms were resolved with rest and completion of Lexiscan protocol. Baseline heart rate was 66 BPM Maximum Heart Rate Achieved was: 115 BPM Baseline blood pressure was 128/80 mmHg Post Stress Blood Pressure was 128/78 mmHg Termination: Protocol complete. Resting ECG: Sinus rhythm, normal ECG. Post ECG: No diagnostic ST changes. Perfusion Findings: Normal perfusion imaging. No definite fixed or reversible defects. A TIDof 0.97 was automatically calculated. LV Function: Global left ventricular function is normal. Left ventricular ejectionfraction is 67 %. CONCLUSIONS: Sinus rhythm, normal ECG. No diagnostic ST changes. Global left ventricular function is normal. Left ventricular ejectionfraction is 67 %. Normal perfusion imaging. No definite fixed or reversible defects. A TIDof 0.97 was automatically calculated. Electronically Signed By: Blake Samuel MD, [facility] 03/04/2025 7:33:53 AM CDT Electronically Signed By: Blake Samuel MD, [facility] 03/04/2025 7:33:53 AM CDT Neda Amin MD IMG NM PROCEDURES Fi nal Result * Electrocardiogram Report (02/24/2025 3:29 PM CDT) Neda Amin MD ECG ORDERABLES Christen l Result from Last 3 Months Insurance [facility] CHOICE PLUS Care Teams Water Sponger Relationship Specialty Start Date End Date Blake Saleem MD PCP - General 10/07/16
--- OUTSIDE RECORDS SUMMARY | 2025-05-26 01:02 | XMS_ITS | Clinical Summary ---
Author Organization [facility] Address [facility] [place] [address] Care Team Providers Care Time Study Statistician Name Role Phone Stacie Saleem MD Primary Care Provider [phone] Allergies No known active allergies Medications metoprolol succinate ER 25 MG 24 hr tablet Take 75 mg by mouth daily. Active aspirin EC (ASPIRIN EC) 81 MG tablet Take 81 mg by mouth daily. Active amLODIPine 5 MG tablet Take 5 mg by mouth daily. Active hydroCHLOROthiaz jayde 12.5 MG capsule Take 12.5 mg by mouth every morning. Active rosuvastatin 20 MG tablet Take 20 mg by mouth daily. Active Active Problems Problem Noted Date Diagnosed Date Postoperative pain 01/27/2021 Hydronephrosis of left kidney 01/22/2021 Hypertension Hyperlipidemia Coronary artery disease Arthritis Family History Medical History Relation Comments No Known Problems Brother 1 No Known Problems Brother 2 No Known Problems Brother 3 Diabetes Brother 4 No Known Problems Daughter 1 No Known Problems Daughter 2 Cancer Father pancreatic ca Cancer Mother breast Diabetes Mother No Known Problems Son Relation Status Comments Brother 1 Alive Brother 2 Alive Brother 3 Alive Brother 4 Alive Daughter 1 Alive Daughter 2 Alive Father Mother Alive Son Alive Social History Tobacco Use Types Packs/Day Years [...] Sign Reading Time Taken Comments Blood Pressure 146/81 01/24/2021 4:10 AM CDT Pulse 77 01/24/2021 4:10 AM CDT Temperature 36.7 C (98 F) 01/24/2021 4:10 AM CDT Respiratory Rate 18 01/24/2021 4:10 AM CDT Oxygen Saturation 98% 01/24/2021 4:10 AM CDT Inhaled Oxygen Concentration - - Weight 90.7 kg (199 lb 15.3 oz) 01/24/2021 4:00 AM CDT Height 180.3 cm (5' 11) 01/22/2021 11: 00 AM CDT Body Mass Index 27.89 01/22/2021 11:00 AM CDT Plan of Treatment Health Maintenance Due Date Last Done Comments ASCVD LDL 1965 ASCVD Statin 1965 Colorectal Cancer Screening Colonoscopy (10 Years) 1964 Annual Physical 1967 Hepatitis C 1982 DTaP, Tdap and Td Vaccines ( 1 - Tdap) 1983 Pneumococcal Vaccine: 50+ Ye ars (1 of 2 - PCV) 1983 Zoster Vaccines (1 of 2) 2014 RSV Immunization or 60+ Years (1 - Risk 60-74 years 1-dose series) 2024 COVID-19 Vaccine (1 - 2024-2 6 season) 2025 Influenza Adult (#1) 2025 Hepatitis A Vaccines Aged Out No long er eligible based on patient's age to complete this topic Meningococcal B Vaccine Aged Out No l onger eligible based on patient's age to complete this topic Meningococcal Vaccine Aged Out No koby fercho eligible based on patient's age to complete this topic RSV Immunizations Under 20 Months Aged Out No longer eligible based on patient's age to complete this topic Insurance [facility] Advance Directives * Full Code (Latest Code Status on File) Date Activated Date Inactivated Comments 01/22/2021 9:46 PM 01/24/2021 7:25 PM Care Teams Time Study Statistician Relationship Specialty Start Date End Date Stacie Saleem MD PCP - General 05/04/11
--- OUTSIDE RECORDS SUMMARY | 2025-05-26 01:02 | XMS_ITS | Clinical Summary ---
Author Organization [facility] Address [address] [place] [address] Care Team Providers Care Geology Scientist Name Role Phone Unavailable Primary Care Provider Unavailabl e Social History Tobacco Use Types Packs/Day Years Used Date Smoking Tobacco: Never Assessed Sex and Gender Information Value Date Recorded Sex Assigned at Not on file Legal Sex Male 11:15 AM EST Gender Identity Not on file Sexual Orientation Not on file Plan of Treatment Not on file Medical Devices Not on file
--- OUTSIDE RECORDS SUMMARY | 2025-05-26 01:02 | XMS_ITS | Encounter Summary ---
Author Organization [facility] Address [address] [place] [address] Care Team Providers Care Last Repairer Name Role Phone Blake Saleem MD Primary Care Provider [phone] [phone] Encounter Details Date Type Department Care Team (Late st Contact Info) Description 05/07/2025 Telephone [facility] Cardiology [address] [place] [address] Karime Amin MD [facility] [address] Social History Tobacco Use Types Packs/Day Years Used Date Smoking Tobacco: Some Days Cigarettes Smokeless Tobacco: Never Sex and Gender Information Value Date Recorded Sex Assigned at Not on file 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 [employer] * Telephone Encounter - Cari Galindo - 05/07/2025 11:05 AM CST Katelin with [employer] [employer] requesting NM stress test results be faxed to her office. Thank you. Contact: [employer] documented in this encounter Plan of Treatment Not on file documented as of this encounter Visit Diagnoses Not on filedocumented in this encounter Care Teams Last Repairer Relationship Specialty Start Date End Date Blake Saleem MD PCP - General 10/07/16 documented as of this encounter
[2025-05-26 11:18] VITALS: BP 131/87; PULSE 81; RESP 18; TEMP 36.1; O2SAT 98; BMI 25.1
[2025-05-26] MEDS: LACTATED RINGERS 1,000 ML 150 ML IV CONT (11:26)
--- NOTE | 2025-05-26 12:05 | WPDANESEPPF ---
Anes - Initial Pre Proc Eval Procedure: Operation Date: 05/26/25 12:30 Proposed Procedures p Screening Colonoscopy - Mohsen Hoffman MD Date/Time: 05/26/25 12:05 Surgeon: Mohsen Hoffman MD Pre Op Diagnosis: Screening Patient Data Age: 60 Gender: M Height: 1.8 m Weight: 81.7 kg Last Vital Signs Temp 97 F L 05/26/25 11:18 Pulse 81 05/26/25 11:18 Resp 18 05/26/25 11:18 BP 131/87 05/26/25 11:18 Pulse Ox 98 05/26/25 11:18 O2 Del Method Room Air 05/26/25 11:18 Allergies Allergy/AdvReac Type Severity Reaction Status Date / Time No Known Allergies Allergy Unknown Verified 05/26/25 11:16 Home Medications ?Medication ?Instructions ?Recorded ?Confirmed ?Type aspirin 81 mg tablet,delayed 81 mg PO DAILY 09/07/22 05/26/25 History release (Adult Aspirin Regimen) amlodipine 5 mg tablet 5 mg PO QAM #90 tabs 03/19/25 05/26/25 Rx hydrochlorothiazide 12.5 mg capsule 12.5 mg PO QAM #90 caps 03/19/25 05/26/25 Rx metoprolol succinate 25 mg 75 mg (3 x 25 mg) PO DAILY #270 03/19/25 05/26/25 Rx tablet,extended release 24 hr tabs rosuvastatin 20 mg tablet 20 mg PO .q hs #90 tabs 03/19/25 05/26/25 Rx Patient hx anesthesia problems: none Family hx anesthesia problems: none Results Review: All pre-operative results and documents have been reviewed as part of the pre-operative evaluation. [facility] Past Medical History Medical History Arthritis of knee, left Papillary renal cell carcinoma Hyperlipidemia Hypertension Vascular disease Kidney disease one kidney non functional BMI 27.0-27.9,adult Degenerative arthritis of knee Surgical History Surgical History History of right knee joint replacement August 24, 2020 History of left nephrectomy 2020 Hx of CABG x3, 2008 History of heart artery stent 2017 Degenerative arthritis of knee, bilateral Right TKA August 24, 2020 S/P left knee arthroscopy S/P triple vessel bypass Family History Family History Father Family history of cardiovascular disease Pancreatic cancer Mother Diabetes mellitus Heart disease CKD (chronic kidney disease) History of blood clots Sibling Heart disease Social History Social History Smoking packs per day: 1 Smoking cigarettes per day: 20.0 Years smoked: 35 Smoking pack-years: 35.00 Smoking status: Current every day smoker Tobacco type: cigarettes Second hand tobacco smoke exposure: Yes Smoking end date: 01/27/24 Alcohol intake: current Drinks per week: 6 Substance use: current Substance use type: marijuana Other substance usage details: STATES COUPLE HITS EVERY OTHER DAY OR SO Last use: once every couple weeks Lack of Transportation: YES Lack of Food: Never True Current Housing: I Have Housing Concerned About Future Housing: No Difficulty Paying Gas/Electric Bills: No Difficulty Paying for Meds: No Currently Unemployed: No Education: High School Diploma/GED Difficulty w/ Childcare or Family Care: No Living arrangements: alone Occupation/Education: occupation 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 ) Neurological: alert and oriented Last oral intake: >/= 8 hours ASA classification: III Emergent: no Anesthetic plan: proceed Anesthesia type and monitoring: general GIVS and standard monitoring Results Review: All pre-operative results and documents have been reviewed as part of the pre-operative evaluation. Hx CABG/PTCA 2009 and 2016, full cardiac workup reviewed in anticipation of upcoming knee sx, pt had nml stress test 02/2025. Smokes daily. Informed Consent: The patient's anesthetic plan and its attendant risks and benefits were discussed with the patient/family/POA. Questions were solicited and answers provided to the satisfaction of the patient/family/POA.
--- NOTE | 2025-05-26 12:54 | PM.HPGS ---
History of Present Illness History of Present Illness Consent: Risks, benefits, and alternatives have been discussed and questions answered. Patient agrees to proceed with procedure. Chief complaint: Screening Narrative: Bala Hensley is a 60 year old male here for screening colonoscopy, last one 2014 Review of Systems Review of Systems: All systems reviewed & are unremarkable except as noted in HPI and below PMFSH Past Medical History Medical History (Updated 05/26/25 @ 12:54 by Mohsen Hoffman MD) Colon cancer screening Arthritis of knee, left Papillary renal cell carcinoma Hyperlipidemia Hypertension Vascular disease Kidney disease one kidney non functional BMI 27.0-27.9,adult Degenerative arthritis of knee Surgical History Surgical History History of right knee joint replacement August 24, 2020 History of left nephrectomy 2020 Hx of CABG x3, 2008 History of heart artery stent 2017 Degenerative arthritis of knee, bilateral Right TKA August 24, 2020 S/P left knee arthroscopy S/P triple vessel bypass Family History Family History Father Family history of cardiovascular disease Pancreatic cancer Mother Diabetes mellitus Heart disease CKD (chronic kidney disease) History of blood clots Sibling Heart disease Social History Social History Smoking packs per day: 1 Smoking cigarettes per day: 20.0 Years smoked: 35 Smoking pack-years: 35.00 Smoking status: Current every day smoker Tobacco type: cigarettes Second hand tobacco smoke exposure: Yes Smoking end date: 01/27/24 Alcohol intake: current Drinks per week: 6 Substance use: current Substance use type: marijuana Other substance usage details: STATES COUPLE HITS EVERY OTHER DAY OR SO Last use: once every couple weeks Lack of Transportation: YES Lack of Food: Never True Current Housing: I Have Housing Concerned About Future Housing: No Difficulty Paying Gas/Electric Bills: No Difficulty Paying for Meds: No Currently Unemployed: No Education: High School Diploma/GED Difficulty w/ Childcare or Family Care: No Living arrangements: alone Occupation/Education: occupation 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 [employer] Gender identity (if verbalized by the patient): Male Spiritual care concerns: No Meds Home Medications and Allergies Home Medications ?Medication ?Instructions ?Recorded ?Confirmed ?Type aspirin 81 mg tablet,delayed 81 mg PO DAILY 09/07/22 05/26/25 History release (Adult Aspirin Regimen) amlodipine 5 mg tablet 5 mg PO QAM #90 tabs 03/19/25 05/26/25 Rx hydrochlorothiazide 12.5 mg capsule 12.5 mg PO QAM #90 caps 03/19/25 05/26/25 Rx metoprolol succinate 25 mg 75 mg (3 x 25 mg) PO DAILY #270 03/19/25 05/26/25 Rx tablet,extended release 24 hr tabs rosuvastatin 20 mg tablet 20 mg PO .q hs #90 tabs 03/19/25 05/26/25 Rx Allergies Allergy/AdvReac Type Severity Reaction Status Date / Time No Known Allergies Allergy Unknown Verified 05/26/25 11:16 Vital Signs Vital Signs - 24 hr 05/26/25 11:18 Temperature 97 F L Pulse Rate 81 Respiratory Rate 18 Blood Pressure 131/87 Pulse Oximetry 98 Oxygen Delivery Room Air Exam Const: General: comfortable and no acute distress HENMT: Face/Nose/Sinus: Normal nares present Eyes: General: appearance normal, both eyes and all related structures Neck: Neck: no JVD Resp: Auscultation: clear to auscultation bilaterally Cardio: Rate: regular rate Rhythm: regular rhythm GI: Inspection: non-distended GI Palp: Yes Soft to palpation Skin: General skin exam: normal color Extrem: General: normal to inspection Psych: Mental Status: mental status grossly normal Assessment and Plan Assessment and plan (1) Colon cancer screening: Code(s): Z12.11 - Encounter for screening for malignant neoplasm of colon Status: Acute Assessment and Plan: colonoscopy
--- NOTE | 2025-05-26 13:06 | S_PTH ---
PATIENT: Bala Hensley LOC: [facility] Pierre#:[id number] AGE/SX: 60/M ROOM: RE05/26/[address]: Mohsen Hoffman MD : [id number] BED: DIS: 05/26/2025 SPEC #: [id number] RECD: 05/26/25 14:20 STATUS: MIKEY RE #: [id number] BRENNA: 05/26/25 13:[address]: Mohsen Hoffman DEPT: [facility] Surgical RECD BY: Arpita Russo ENTERED: 05/26/25 14:21 SP TYPE: Surgical OTHR DR: Blake Saleem MD Tissues: A - Colon Polypectomy Procedures: Hematoxylin and Eosin Stain Gross and Microscopic Level 4
[2025-05-26 13:08] VITALS: BP 101/70; PULSE 77; RESP 25; O2SAT 98
[2025-05-26 13:18] VITALS: BP 103/69; PULSE 69; RESP 22; O2SAT 99
[2025-05-26 13:28] VITALS: BP 123/83; PULSE 70; RESP 21; O2SAT 99
== END 2025-05-26 13:34 | disposition home or self-care (01) ==
PROVIDERS: PCP Family Medicine; Referring Provider Family Medicine; Visit Provider Internal Medicine Gastroenterology
PROC: 0DJD8ZZ Inspection of Lower Intestinal Tract, Via Natural or Artificial Opening Endoscopic (ICD-10-PCS; CPT 45378; principal; 2025-05-26 12:30)
DX: Z12.11 Encounter for screening for malignant neoplasm of colon (principal); D12.3 Benign neoplasm of transverse colon; K64.8 Other hemorrhoids; E78.5 Hyperlipidemia, unspecified; I10 Essential (primary) hypertension; M17.0 Bilateral primary osteoarthritis of knee; I99.9 Unspecified disorder of circulatory system; F12.90 Cannabis use, unspecified, uncomplicated; F17.210 Nicotine dependence, cigarettes, uncomplicated; Z79.82 Long term (current) use of aspirin; Z98.890 Other specified postprocedural states; Z90.5 Acquired absence of kidney; Z95.1 Presence of aortocoronary bypass graft; Z95.5 Presence of coronary angioplasty implant and graft; Z85.528 Personal history of other malignant neoplasm of kidney; Z80.0 Family history of malignant neoplasm of digestive organs; Z82.49 Family history of ischemic heart disease and other diseases of the circulatory system
CPT/HCPCS: 45380; 88305; J2003; J2704; J7120